=== PATIENT | male | born 1965 | race Two or more races ===

== ENCOUNTER 2019-06-21 14:09 | Emergency (ER) | payer OTHER ==
--- NOTE | 2019-06-21 15:37 | RADIOLOGY REPORT (SQ) ---
EXAM DESCRIPTION: WRIST LEFT 3 VIEWS COMPLETED DATE/TIME: 06/21/2019 3:11 pm REASON FOR STUDY: fall / laceration / bone tenderness COMPARISON: None. NUMBER OF VIEWS: Three views. TECHNIQUE: AP, lateral, and oblique radiographic images acquired of the left wrist. LIMITATIONS: None. FINDINGS: MINERALIZATION: Osteopenia. BONES: There is an old fracture of the distal radius. There is a nondisplaced fracture of the radial styloid with poorly corticated proximal margins consistent with recent fracture. SOFT TISSUES: No soft tissue swelling. No foreign body. OTHER: No other significant finding. IMPRESSION: Nondisplaced fracture ulnar styloid. TECHNICAL DOCUMENTATION: JOB ID: [id number] [facility]- All Rights Reserved Reading location - IP/workstation name: [email or web address]
[2019-06-21] MEDS ORDERED: LIDOCAINE 1% INJ-PF (10 MG/ML) 30 ML SDV INJ ONE (17:27)
--- NOTE | 2019-06-21 17:27 | ER Document Report ---
ED General - General Chief Complaint: Laceration Stated Complaint: LACERATION Time Seen by Provider: 06/21/19 17:18 TRAVEL OUTSIDE OF THE [place] 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 He initially had brisk bleeding possibly arterial which was controlled with direct pressure. EMS was called and he was transported here. Patient says that this is his dominant upper extremity. He reports no distal sensory or motor deficit. He has minimal discomfort now. Last tetanus booster greater than 5 years ago. Patient has diet-controlled diabetes mellitus. He is otherwise healthy and the only medicine he takes regularly is a multivitamin. - Related Data Allergies/Adverse Reactions: No Known Allergies Allergy (Verified 06/21/19 14:38) Home Medications: vitamins Past Medical History - General Information source: Patient - Social History Smoking Status: Current Every Day Smoker Chew tobacco use (# tins/day): No Frequency of alcohol use: Social Drug Abuse: None Lives with: Family Family History: Reviewed & Not Pertinent Patient has suicidal ideation: No Patient has homicidal ideation: No - Past Medical History Cardiac Medical History: Reports: None Pulmonary Medical History: Reports: None Endocrine Medical History: Reports: Hx Diabetes Mellitus Type 2 Review of Systems - Review of Systems Notes: Constitutional: Negative for fever. HENT: Negative for sore throat. Eyes: Negative for visual changes. Cardiovascular: Negative for chest pain. Respiratory: Negative for shortness of breath. Gastrointestinal: Negative for abdominal pain, vomiting or diarrhea. Genitourinary: Negative for dysuria. Musculoskeletal: Negative for back pain. Skin: Negative for rash. Neurological: Negative for headaches, weakness or numbness. 10 point ROS negative except as marked above and in HPI. Physical Exam - Vital signs Vitals: Temp Pulse Resp BP Pulse Ox 98.1 F 95 18 129/74 H 100 06/21/19 14:14 06/21/19 14:14 06/21/19 14:14 06/21/19 14:14 06/21/19 14:14 Notes: GENERAL: Well-developed well-nourished appearing in minimal discomfort. SKIN: Patient has a 7.5 cm superficial oblique laceration over the mid volar aspect of the left forearm. There is a pressure dressing in place. Upon removal of the pressure dressing there is no active bleeding. Good turgor no rashes. HEAD: Normocephalic atraumatic. EYES: PERRLA. Conjunctivae and sclerae clear. EARS: CANALS AND TMS CLEAR. NOSE: CLEAR. MOUTH: Moist mucosa. Good dentition. No stridor or edema. No drooling. NECK: Supple. No masses or thyromegaly. No adenopathy. Carotids 2+ without bruits. No JVD. BACK: Symmetrical without tenderness. CHEST: Respirations unlabored. Breath sounds clear and symmetrical. HEART: Regular rhythm. No murmur gallop or rub. ABDOMEN: Soft nontender without masses, organomegaly or rebound. Bowel sounds normally active. No bruits. GENITALIA: Deferred. EXTREMITIES: Laceration of left forearm as described above. Distal pulses, sensation, motor function and capillary refill are normal. No edema. No calf tenderness. Cap refill less than 1.5 seconds. Dorsalis pedis and posterior tibial pulses 3+ and symmetrical. NEUROLOGICAL: GCS 15. Alert and oriented x3. Normal gait. Fluent speech. Cranial nerves II through XII intact. Sensorimotor and cerebellar normal. Normal tone. Course - Vital Signs Vital signs: Temp Pulse Resp BP Pulse Ox 98.1 F 95 18 129/74 H 100 06/21/19 14:14 06/21/19 14:14 06/21/19 14:14 06/21/19 14:14 06/21/19 14:14 Procedures - Laceration/Wound Repair Left Anterior Arm Time completed: 18:55 Wound length (cm): 10 Wound's Depth, Shape: Superficial, Linear Laceration pre-procedure: Sterile PPE donned, Sterile drapes applied, Shur-Clens applied Anesthetic type: 1% Lidocaine w/epi Volume Anesthetic (mLs): 10 Wound explored: Clean, No foreign body removed Irrigated w/ Saline (mLs): 1,000 Wound Debrided: Minimal Wound Repaired With: Sutures Suture Size/Type: 3:0, Ethilon Layer Closure?: No - 9 Post-procedure wound care: Sterile dressing applied, Splint applied Post-procedure NV exam normal: Yes Complications: No Discharge - Discharge Clinical Impression: Laceration of forearm Qualifiers: Encounter type: initial encounter Laterality: left Qualified Code(s): S51.098J - Laceration without foreign body of left forearm, initial encounter Condition: Stable Disposition: HOME, SELF-CARE Instructions: Antibiotic Ointment Protection (OM), Tetanus Immunization Given (OM), Laceration Care (OM) Additional Instructions: Return here or see your primary doctor for removal of sutures in 10 days. Take Tylenol as needed. Elevate the extremity apply ice packs tonight. Prescriptions: Cephalexin Monohydrate [Keflex 500 mg Capsule] 500 mg PO Q6H 10 Days #40 capsule NS
[2019-06-21] MEDS ORDERED: DIPH/PERTUSS(ACELL)/TETANUS VAC/PF 0.5 ML SYR (>=10YO) IM ONE (17:29)
[2019-06-21] MEDS ORDERED: LIDOCAINE 1%/EPINEPHRINE INJ 20 ML VIAL INJ ONE (17:43)
[2019-06-21 19:47] VITALS: BP 105/66
== END 2019-06-21 19:56 | disposition home or self-care (01) ==
LOC: ER 14:09
DX: S51.812A Laceration without foreign body of left forearm, initial encounter (principal); W45.8XXA Other foreign body or object entering through skin, initial encounter; Y93.H3 Activity, building and construction; Y99.0 Civilian activity done for income or pay; E11.9 Type 2 diabetes mellitus without complications; Z79.899 Other long term (current) drug therapy; F17.200 Nicotine dependence, unspecified, uncomplicated
CPT/HCPCS: 99283; 90471; 73110; 90715; 12004; J3490